=== PATIENT | male | born 1975 | race Two or more races ===

== ENCOUNTER 2025-02-06 20:51 | Inpatient (IN) | payer BC, OTHER ==
[~2025-02-06] VITALS: Ht 170.2 cm; Wt 86.8 kg
[2025-02-06 21:33] LABS: Urine Bacteria None Seen /hpf (None Seen)
--- NOTE | 2025-02-06 21:37 | ED.PDOC ---
General HPI Comments 49-year-old male with PMHx Renal Stones presents with a chief complaint of hypertension, flank pain, dysuria, burning with urination, nausea and vomiting for the past. Patient states that his pain is localized to his left flank, nonradiating, describes as sharp, and states that the pain resembles the last time he had a kidney stone. Patient mentions that he has pain upon urination and it also jones when he urinates. Patient endorses nausea and 3 episodes of vomiting today. Patient is hypertensive in triage at 202/103. Denies any HTN diagnosis or taking any medications for any medical conditions. Patient does not follow with a primary care provider Time Seen by MD: 21:20 Reviewed notes: Medications, Allergies Allergies: Coded Allergies: NO KNOWN ALLERGIES (Unverified , 02/06/25) Information Source: Patient Mode of Arrival: Ambulatory Severity: Moderate Inability to void: None Timing: Hours Duration: Since onset Has not urinated for: Minutes Prehospital treatment: None Onset: Spontaneous Symptoms: Dysuria History of: Kidney stone Location: (L)Flank associated signs and symptoms: Flank Pain, Dysuria Vital Signs Vital Signs Date Time Temp Pulse Resp B/P (MAP) Pulse Ox O2 Delivery O2 Flow Rate FiO2 02/06/25 23:44 91 18 96 Room Air* 0 21 02/06/25 23:14 190/117 02/06/25 22:32 98.0 98.0 Physical Exam General: Awake, alert and oriented. No acute distress. Skin: Skin in warm, dry and intact. Appropriate color for ethnicity. HEENT: The head is normocephalic and atraumatic. Conjunctivae are clear without exudates or hemorrhage. Sclera is non-icteric. EOM are intact. No signs of nystagmus. Eyelids are normal in appearance without swelling or lesions. Oral mucosa is pink and moist Neck: The neck is supple with normal range of motion. No JVD. Cardiac: Heart rate and rhythm are normal. No murmurs, gallops, or rubs are auscultated. Respiratory: No signs of respiratory distress. Lung sounds are clear in all lobes bilaterally without rales, ronchi, or wheezes. Abdominal: Abdomen is soft, mild midline tenderness without distention. Positive left flank tenderness. Extremities: Upper and lower extremities are atraumatic in appearance without de formity or edema. Neurological: The patient is awake, alert and oriented to person, place, and time with normal speech. Speech is clear. There is no facial asymmetry. Psychiatric: Appropriate mood and affect. Good judgement and insight. No visual or auditory hallucinations. Review of Systems: REVIEW OF SYSTEMS: No fever, no chills, or fatigue HEENT: No sore throat, no earache, no congestion, no neck pain. Cardiac: No chest pain. No palpitations. Lungs: No shortness of breath, no cough. GI: Positive nausea, positive vomiting, no diarrhea, no constipation, no abdominal pain : Positive dysuria, no frequency, or urgency. No hematuria. Musculoskeletal: No joint pain , no joint swelling, no extremity edema. Skin: No rash, no itching. Neuro: No headache, no dizziness, no weakness Past Medical History PAST MEDICAL HISTORY: Kidney Stones Surgical History: Denies all surgeries Family History Family History: Reviewed,noncontributory to illness Social History Smoker: Non-Smoker Alcohol: Denies ETOH Use Drugs: Denies Drug Use Lives In: Home Was a procedure done? Was a procedure done?: No Differential Diagnosis Kidney stone (Female): AAA, Bowel obstruction, Hepatitis, Renal failure, Urinary obstruction, Urolithiasis, Other Other Differential Diagnosis Hypertensive urgency, hypertensive emergency, hypertensive encephalopathy, other X-Ray, Labs, Meds, VS Vital Signs Date Time Temp Pulse Resp B/P (MAP) Pulse Ox O2 Delivery O2 Flow Rate FiO2 02/06/25 23:44 91 18 96 Room Air* 0 21 02/06/25 23:14 190/117 02/06/25 23:10 94 189/114 02/06/25 22:40 93 16 170/100 02/06/25 22:32 98.0 86 28 210/122 (151) 92 98.0 02/06/25 22:08 85 17 210/122 02/06/25 22:07 85 210/122 02/06/25 21:42 79 02/06/25 20:51 98.0 86 14 202/130 (154) 97 98.0 Lab Test 02/06/25 21:38 02/06/25 21:30 Range/Units White Blood Count 15.1 H 4.4-10.8 10^3/uL Red Blood Count 4.87 4.5-5.90 10^6/uL Hemoglobin 14.7 13.5-17.5 g/dL Hematocrit 44.8 41.0-53.0 % Mean Corpuscular Volume 91.9 80.0-100.0 fL Mean Corpuscular Hemoglobin 30.2 28.0-32.0 pg Mean Corpuscular Hemoglobin Concent 32.8 32.0-36.0 g/dL Red Cell Distribution Width 14.3 11.8-14.3 % Platelet Count 188 140-450 10^3/uL Mean Platelet Volume 10.6 6.9-10.8 fL Neutrophils (%) (Auto) 87.2 H 37.0-80.0 % Lymphocytes (%) (Auto) 7.1 L 10.0-50.0 % Monocytes (%) (Auto) 5.3 0.0-12.0 % Eosinophils (%) (Auto) 0.2 0.0-7.0 % Basophils (%) (Auto) 0.2 0.0-2.0 % Neutrophils # (Auto) 13.2 H 1.6-8.6 10 ^3/uL Lymphocytes # (Auto) 1.1 0.4-5.4 10 ^3/uL Monocytes # (Auto) 0.8 0-1.3 10 ^3/uL Eosinophils # (Auto) 0 0-0.8 10 ^3/uL Basophils # (Auto) 0 0-0.2 10 ^3/uL Nucleated Red Blood Cells 0.0 % Sodium Level 139 136-145 mmol/L Potassium Level 3.6 3.5-5.1 mmol/L Chloride Level 102 98-107 mmol/L Carbon Dioxide Level 27 20-31 mmol/L Anion Gap 10 5-15 Blood Urea Nitrogen 23 9-23 mg/dL Creatinine 1.63 H 0.700-1.30 mg/dL Glomerular Filtration Rate Calc 51 >90 mL/min BUN/Creatinine Ratio 14.1 10.0-20.0 Serum Glucose 136 H 74-106 mg/dL Calcium Level 9.5 8.7-10.4 mg/dL Total Bilirubin 0.3 0.2-1.0 mg/dL Aspartate Amino Transferase (AST) 32 13-40 U/L Alanine Aminotransferase (ALT) 64 H 7-40 U/L Alkaline Phosphatase 93 46-116 U/L Troponin I High Sensitivity 3 L </=54 ng/L Total Protein 7.8 5.7-8.2 g/dL Albumin 5.0 H 3.2-4.8 g/dL Urine Color Colorless Yellow Urine Clarity Clear Clear Urine pH 7.5 5.0-9.0 Urine Specific [place] 1.013 1.001-1.035 Urine Protein Negative Negative Urine Ketones 1+ H Negative Urine Blood 2+ H Negative /uL Urine Nitrite Negative Negative Urine Bilirubin Negative Negative Urine Urobilinogen Normal Negative mg/dL Urine Leukocyte Esterase Negative Negative /uL Urine RBC 81 0 - 3 /hpf Urine Microscopic WBC < 1 0-3 /HPF Urine Squamous Epithelial Cells Few <5 /hpf Urine Bacteria None seen None Seen /hpf Urine Glucose Normal Normal mg/dL Current Medications Medications (Trade) Dose Ordered Sig/Fritz Route Start Time Stop Time Status Last Admin Morphine Sulfate 2 mg ONCE ONCE IV 02/06/25 21:30 02/06/25 21:31 DC 02/06/25 22:08 Labetalol HCl (Labetalol HCl) 10 mg ONCE ONCE IV 02/06/25 21:30 02/06/25 21:31 DC 02/06/25 22:07 Hydralazine HCl (Apresoline Injection) 10 mg ONCE ONCE IV 02/06/25 23:15 02/06/25 23:16 DC 02/06/25 23:14 Time of 1ST Reevaluation: 21:50 Reevaluation 1ST: Unchanged Patient Education/Counseling: Diagnosis, Treatment, Prognosis Family Education/Counseling: No Family Present Departure 1 Departure Time of Disposition: 22:39 Impression: Primary Impression: Uncontrolled hypertension Additional Impressions: Acute kidney injury Nephrolithiasis Disposition: ADMITTED INPATIENT Condition: Stable Comments 49-year-old male sitting with flank pain noted to be hypertensive. On arrival to the ED. CT scan showedIMPRESSION: Approximately 2 mm calculus in the distal left ureter causing [id number] left hydroureteronephrosis. Decreased hepatic parenchymal attenuation which is most commonly secondary to fatty infiltration. Labetalol, hydralazine, administered in the ED with some improvement in blood pressure. No neurologic or cardiac symptoms. Patient admitted for further treatment, evaluation and monitoring. Extensive evaluation was performed in attempt to identify or rule out: (See differential diagnosis section) The following tests were ordered, and results were reviewed by me and discussed with patient: (See diagnostic results section) The following test were independently interpreted by me: EKG I reviewed and agreed with the following test results read by other providers: N/A I reviewed the following notes from the pt's past medical encounters: N/A Additional information was gathered from interviewing the following independent historians: N/A Discussion of management or test interpretation with external physician/other qualified health acute care surgeon: N/A Addressed an acute or chronic illness that poses a threat to life or bodily function: Uncontrolled hypertension, acute kidney injury, Decision regarding hospitalization or escalation of hospital level of care: Risk and benefits of admission for further treatment of patient's condition was considered. Due to patient's current clinical condition, high risk of decline and poor outcome if discharged and need for further inpatient management and monitoring, patient will be admitted to the hospital. Drug therapy requiring intensive monitoring for toxicity: IV labetalol, IV hydralazine Parenteral controlled substances: IV morphine Decision regarding elective major surgery with identified patient or procedure risk factors: N/A Decision regarding emergency major surgery: N/A Decision not to resuscitate or to de-escalate care because of poor prognosis: N/A Diagnosis or treatment significantly limited by social determinants of health: N/A Critical Care Note Critical Care Time?: No Stability Stability form required: No Heart Score Heart Score: Heart Score Response (Comments) Value History N/A 0 EKG N/A 0 Age N/A 0 Risk Factors N/A 0 Troponin N/A 0 Total 0 I personally scribed for HANNA BATISTA MD ([email or web address]) on 02/06/25 at 21:37. Electronically submitted by Moo Watters ([email or web address]). HANNA BATISTA MD Feb 06, 2025 21:37
[2025-02-06 21:44] LABS: Urine Blood 2+ /uL (Negative); Urine Clarity Clear (Clear); Urine Color Colorless (Yellow); Urine Protein, UAD Negative (Negative); Urine Specific Gravity 1.013 (1.001-1.035); Urine Squamous Epithelial Cell FEW /hpf (<5); Urine Urobilinogen Normal (Negative); Urine WBC < 1 /HPF (0-3); Urine pH 7.5 (5.0-9.0)
--- NOTE | 2025-02-06 21:44 | ECG ---
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
[2025-02-06 21:53] LABS: Basophils # (auto) 0 10 ^3/uL (0-0.2); Basophils % (auto) 0.2 % (0.0-2.0); Eosinophils # (auto) 0 10 ^3/uL (0-0.8); Eosinophils % (auto) 0.2 % (0.0-7.0); Hematocrit 44.8 % (41.0-53.0); Hemoglobin 14.7 g/dL (13.5-17.5); Lymphocytes # (auto) 1.1 10 ^3/uL (0.4-5.4); Lymphocytes % (auto) 7.1 % (10.0-50.0); Mean Corpuscular Hemoglobin 30.2 pg (28.0-32.0); Mean Corpuscular Hgb Conc. 32.8 g/dL (32.0-36.0); Mean Corpuscular Volume 91.9 fL (80.0-100.0); Monocytes # (auto) 0.8 10 ^3/uL (0-1.3); Monocytes % (auto) 5.3 % (0.0-12.0); Neutrophils # (auto) 13.2 10 ^3/uL (1.6-8.6); Neutrophils % (auto) 87.2 % (37.0-80.0); Platelet Count (auto) 188 10^3/uL (140-450); Red Blood Cells 4.87 10^6/uL (4.5-5.90); Red Cell Distribution Width 14.3 % (11.8-14.3); White Blood Cell 15.1 10^3/uL (4.4-10.8)
[2025-02-06 22:00] LABS: Alkaline Phosphatase 93 U/L (46-116); Anion Gap 10 (5-15); Aspartate Aminotransferase 32 U/L (13-40); BUN/Creatinine Ratio 14.1 (10.0-20.0); Bilirubin, Total 0.3 mg/dL (0.2-1.0); Blood Urea Nitrogen 23 mg/dL (9-23); Calcium 9.5 mg/dL (8.7-10.4); Carbon Dioxide 27 mmol/L (20-31); Chloride 102 mmol/L (98-107); Potassium 3.6 mmol/L (3.5-5.1); Sodium 139 mmol/L (136-145); Total Protein 7.8 g/dL (5.7-8.2)
[2025-02-06 22:07] LABS: Glucose 136 mg/dL (74-106)
[2025-02-06] MEDS: LABETALOL HCL 20 MG/4 ML VL IV ONE (22:07)
[2025-02-06 22:08] LABS: Alanine Aminotransferase 64 U/L (7-40)
[2025-02-06] MEDS: MORPHINE SULFATE INJ 2 MG/ml SYRG IV ONE (22:08)
[2025-02-06] MEDS: hydrALAZINE HCL 20 MG/ML VL IV ONE (23:14)
[2025-02-06 23:44] VITALS: PULSE 91; RESP 18; O2SAT 96
[2025-02-07] VITALS (7 sets, daily range): BP systolic 148–156; BP diastolic 91–105; PULSE 71–82; RESP 17–20; TEMP 97.6–98.7; O2SAT 95–98
--- NOTE | 2025-02-07 00:35 | DVH ---
CT SCAN ABDOMEN AND PELVIS WITHOUT CONTRAST CLINICAL HISTORY: L Flank pain TECHNIQUE: Helical axial images are obtained from the lung bases through the pelvis without oral cont rast. No intravenous contrast was administered. Coronal and sagittal reformatted images were generate d from thin section reconstructions. One or more of the following radiation dose reduction techniques were used for this examination: automated exposure control, adjustment of the mA and/or kV according to patient size, use of iterative reconstruction technique. COMPARISON: None FINDINGS: LOWER THORAX: Mild dependent atelectasis/ scarring in the imaged lung bases. ABDOMEN AND PELVIS: Evaluation of visceral and vascular structures is limited due to lack of contrast administration. Decreased hepatic parenchymal attenuation. No discrete hepatic lesions as visualized. The unenhanced spleen, pancreas and adrenals appear grossly unremarkable. No sizable, radiopaque cholelithiasis or biliary ductal dilatation. Ihgq-jp-[id number] left hydroureteronephrosis. Approximately 2 mm calculus seen within the distal left ureter at the ureterovesicular junction. Left perinephric and periureteral inflammation. No evidence of abdominal aortic aneurysm. No evidence of bowel obstruction. Normal caliber appendix. No free intraperitoneal air or fluid iden tified. No destructive osseous lesions identified. Multilevel lumbar spine degenerative disc disease. IMPRESSION: Approximately 2 mm calculus in the distal left ureter causing [id number] left hydroureteronephr osis. Decreased hepatic parenchymal attenuation which is most commonly secondary to fatty infiltration.
[2025-02-07] MEDS ORDERED: MORPHINE SULFATE INJ 2 MG/ml SYRG IV PRN (02:15)
[2025-02-07] MEDS ORDERED: ONDANSETRON HCL 4 MG/2 ML VIAL IV PRN (02:15)
[2025-02-07] MEDS ORDERED: ACETAMINOPHEN 325 MG TAB PO PRN (02:15)
--- NOTE | 2025-02-07 02:19 | DVHHPRES ---
History of Present Illness Resident Creating Document: DON MCDUFFIE History of Present Illness Mike Morel 49-year-old male patient who presents to the ED with chief complaint of left-sided flank pain, dysuria, nausea and vomiting associated with hypertension, symptoms started today at 11:00 a.m., prompting his visit to the ED. denies palpitation, syncope, chest pain, dyspnea, diarrhea, sick contacts, bleeding, recent travel and motor or sensory deficits Past medical history: Kidney stones with no surgical intervention Surgical history: Denies Family history: Father and grandfather had [place] Social history: Lives in [place] with family. Denies current tobacco, alcohol and other drug abuse Allergies: Denies Home medication: Denies Patient seen and examined at bedside. Currently has no new complaints. Flank pain has resolved after medical treatment in ED. Past Medical History Per HPI Past Surgical History Per HPI Family History Per HPI Past Social History Per HPI Review of Systems Review of Systems Per HPI Allergies: Coded Allergies: NO KNOWN ALLERGIES (Unverified , 02/06/25) Exam Vital Signs Vital Signs Date Time Temp Pulse Resp B/P (MAP) Pulse Ox O2 Delivery O2 Flow Rate FiO2 02/07/25 02:00 72 15 124/79 (94) 96 02/06/25 23:44 Room Air* 0 21 02/06/25 22:32 98.0 98.0 Exam Patient lying in bed, in no acute distress General: Lucid, afebrile, mucosae are moist Cardiovascular: Normal S1 and S2. No murmurs, gallops or rubs Respiratory: Normal ventilation mechanics. Clear lung sounds on auscultation Abdomen: Soft, nontender, no organomegaly, normal bowel sounds MSK/skin: Mobilizes 4 limbs. Skin is dry and warm Neurological: Oriented in 3 spheres. No motor no sensitive deficits. Pupils are isocoric and reactive Labs/Xrays Labs Test 02/06/25 21:38 02/06/25 21:30 Range/Units White Blood Count 15.1 H 4.4-10.8 10^3/uL Red Blood Count 4.87 4.5-5.90 10^6/uL Hemoglobin 14.7 13.5-17.5 g/dL Hematocrit 44.8 41.0-53.0 % Mean Corpuscular Volume 91.9 80.0-100.0 fL Mean Corpuscular Hemoglobin 30.2 28.0-32.0 pg Mean Corpuscular Hemoglobin Concent 32.8 32.0-36.0 g/dL Red Cell Distribution Width 14.3 11.8-14.3 % Platelet Count 188 140-450 10^3/uL Mean Platelet Volume 10.6 6.9-10.8 fL Neutrophils (%) (Auto) 87.2 H 37.0-80.0 % Lymphocytes (%) (Auto) 7.1 L 10.0-50.0 % Monocytes (%) (Auto) 5.3 0.0-12.0 % Eosinophils (%) (Auto) 0.2 0.0-7.0 % Basophils (%) (Auto) 0.2 0.0-2.0 % Neutrophils # (Auto) 13.2 H 1.6-8.6 10 ^3/uL Lymphocytes # (Auto) 1.1 0.4-5.4 10 ^3/uL Monocytes # (Auto) 0.8 0-1.3 10 ^3/uL Eosinophils # (Auto) 0 0-0.8 10 ^3/uL Basophils # (Auto) 0 0-0.2 10 ^3/uL Nucleated Red Blood Cells 0.0 % Sodium Level 139 136-145 mmol/L Potassium Level 3.6 3.5-5.1 mmol/L Chloride Level 102 98-107 mmol/L Carbon Dioxide Level 27 20-31 mmol/L Anion Gap 10 5-15 Blood Urea Nitrogen 23 9-23 mg/dL Creatinine 1.63 H 0.700-1.30 mg/dL Glomerular Filtration Rate Calc 51 >90 mL/min BUN/Creatinine Ratio 14.1 10.0-20.0 Serum Glucose 136 H 74-106 mg/dL Calcium Level 9.5 8.7-10.4 mg/dL Total Bilirubin 0.3 0.2-1.0 mg/dL Aspartate Amino Transferase (AST) 32 13-40 U/L Alanine Aminotransferase (ALT) 64 H 7-40 U/L Alkaline Phosphatase 93 46-116 U/L Troponin I High Sensitivity 3 L </=54 ng/L Total Protein 7.8 5.7-8.2 g/dL Albumin 5.0 H 3.2-4.8 g/dL Urine Color Colorless Yellow Urine Clarity Clear Clear Urine pH 7.5 5.0-9.0 Urine Specific [place] 1.013 1.001-1.035 Urine Protein Negative Negative Urine Ketones 1+ H Negative Urine Blood 2+ H Negative /uL Urine Nitrite Negative Negative Urine Bilirubin Negative Negative Urine Urobilinogen Normal Negative mg/dL Urine Leukocyte Esterase Negative Negative /uL Urine RBC 81 0 - 3 /hpf Urine Microscopic WBC < 1 0-3 /HPF Urine Squamous Epithelial Cells Few <5 /hpf Urine Bacteria None seen None Seen /hpf Urine Glucose Normal Normal mg/dL Assessment/Plan Assessment/Plan Assessment: Nephrolithiasis complicated with [id number] left hydronephrosis SAVANNAH probably post renal Microscopic hematuria Hypertensive urgency Hepatic steatosis Transaminitis probably due to above Leukocytosis Plan: Completed abdomen and pelvis CT which showed 2 mm calculus in left ureter with nvui-td-nukobonq hydronephrosis Indicated IV fluids and tamsulosin. Urine analysis shows plus one ketones and plus two blood, no signs of infection. We will not initiate antibiotics at this point Evaluate requirement of urology consult, patient asymptomatic at the time of examination Hypertension resolved with pain management Goals of care discussed with patient for over 18 minutes: Full code status Discussed plan with Dr. Person, patient and nurses: We will continue with medical management of kidney stone (IV fluids and tamsulosin). Currently patient is asymptomatic. Ordered abdomen x-ray for a.m. Plan discussed with: Patient, Other (Nurses) My Orders Orders - DON MCDUFFIE RESIDENT Procedure Category Date Status Time Admit ADMIT 02/07/25 Verified 02:08 Code Status CODE 02/07/25 Verified 02:08 Vital Signs [facility] 02/07/25 Verified 02:08 Review Orders With [facility] 02/07/25 Verified Adm. 02:08 Regular Diet DIET 02/07/25 Verified Breakfast Acetaminophen Tablet [facility] 02/07/25 Verified (Tylenol Tablet) 02:15 Notify Of Changes [facility] 02/07/25 Verified From Base 02:08 Advance Directive [facility] 02/07/25 Verified 02:08 Urinalysis LAB 02/07/25 Verified 02:08 Patient Condition ORDERS 02/07/25 Verified 02:08 Allergies [facility] 02/07/25 Verified 02:08 Ondansetron Hcl [facility] 02/07/25 Verified (Zofran) 02:15 Drug Screen LAB 02/07/25 Verified 02:08 Hemoglobin A1c LAB 02/07/25 Verified 02:08 Morphine 2mg Iv Q4hprn [facility] 02/07/25 Verified 02:15 Oxygen By Nasal RT 02/07/25 Verified Cannula 02:08 Stat Ekg For Chest [facility] 02/07/25 Verified Pain 02:08 Notify Of Changes [facility] 02/07/25 Verified From Base 02:08 Molded Goods Operator For [facility] 02/07/25 Verified 24 Hours 02:08 Emergency Dysrhythmia [facility] 02/07/25 Verified Protocol 02:08 Rhythm Strips Once [facility] 02/07/25 Verified Every Shift 02:08 NS [facility] 02/07/25 Verified 02:15 Tamsulosin [facility] 02/07/25 Verified Hydrochloride (Flomax) 02:15 Tamsulosin [facility] 02/07/25 Verified Hydrochloride (Flomax) 18:00 Vitamin D, 25-Hydroxy LAB 02/07/25 Verified 02:08 Vitamin B12 LAB 02/07/25 Verified 02:08 Thyroid Stimulating LAB 02/07/25 Verified Hormone 02:08 Phosphorus LAB 02/07/25 Verified 02:08 Magnesium LAB 02/07/25 Verified 02:08 Lipid Panel LAB 02/07/25 Verified 02:08 Complete Blood Count LAB 02/07/25 Verified 04:08 Basic Metabolic Panel LAB 02/07/25 Verified 04:08 DON MCDUFFIE RESIDENT Feb 07, 2025 02:19
[2025-02-07] MEDS: SODIUM CHLORIDE 0.9% 1,000 ML IV SCH (02:24)
[2025-02-07] MEDS: SODIUM CHLORIDE 0.9% 1,000 ML IV ONE (02:30)
[2025-02-07] MEDS: TAMSULOSIN HYDROCHLORIDE 0.4 MG CAP PO ONE (02:30)
[2025-02-07 03:25] LABS: Amphetamine Screen, Urine Neg (NEGATIVE); Barbiturate Scree,Urine Neg (NEGATIVE); Benzodiazephine Screen, Urine Neg (NEGATIVE); Cannabinoid Screen, Urine Neg (NEGATIVE); Cocaine Screen, Urine Neg (NEGATIVE); Opiate Scree,Urine Neg (NEGATIVE); Phencyclidine Screen, Urine Neg (NEGATIVE)
[2025-02-07 04:07] LABS: Basophils # (auto) 0 10 ^3/uL (0-0.2); Basophils % (auto) 0.1 % (0.0-2.0); Eosinophils # (auto) 0 10 ^3/uL (0-0.8); Eosinophils % (auto) 0.2 % (0.0-7.0); Hematocrit 39.6 % (41.0-53.0); Hemoglobin 13.8 g/dL (13.5-17.5); Lymphocytes # (auto) 1.4 10 ^3/uL (0.4-5.4); Lymphocytes % (auto) 14.2 % (10.0-50.0); Mean Corpuscular Hemoglobin 31.5 pg (28.0-32.0); Mean Corpuscular Hgb Conc. 34.7 g/dL (32.0-36.0); Mean Corpuscular Volume 90.8 fL (80.0-100.0); Monocytes # (auto) 0.9 10 ^3/uL (0-1.3); Monocytes % (auto) 8.4 % (0.0-12.0); Neutrophils # (auto) 7.9 10 ^3/uL (1.6-8.6); Neutrophils % (auto) 77.1 % (37.0-80.0); Platelet Count (auto) 187 10^3/uL (140-450); Red Blood Cells 4.37 10^6/uL (4.5-5.90); Red Cell Distribution Width 14.2 % (11.8-14.3); White Blood Cell 10.2 10^3/uL (4.4-10.8)
[2025-02-07 04:29] LABS: Chloride 103 mmol/L (98-107); Potassium 3.6 mmol/L (3.5-5.1); Sodium 138 mmol/L (136-145)
[2025-02-07 04:30] LABS: Anion Gap 10 (5-15); Calcium 9.2 mg/dL (8.7-10.4); Carbon Dioxide 25 mmol/L (20-31)
[2025-02-07 04:35] LABS: BUN/Creatinine Ratio 15.8 (10.0-20.0); Blood Urea Nitrogen 19 mg/dL (9-23); Triglycerides 124 mg/dL (< 150)
[2025-02-07 04:37] LABS: Cholesterol 187 mg/dL (< 200)
[2025-02-07 04:43] LABS: Glucose 138 mg/dL (74-106); HDL Cholesterol 38 mg/dL (40-59); LDL Cholesterol 142 mg/dL (< 100)
--- NOTE | 2025-02-07 09:49 | DVH ---
US KIDNEY HISTORY: Nephrolithiasis with hydro COMPARISON: 02/06/25 TECHNIQUE: Transverse and longitudinal grayscale and color Doppler images were obtained of the kidney s and bladder. FINDINGS: Right kidney: Size: 10.9 cm Cortical thickness: Normal Echogenicity: Normal Stones: None Masses: None Hydronephrosis: None Ureters: Not well visualized. Other: None Left kidney: Size: 11.6 cm Cortical thickness: Normal Echogenicity: Normal Stones: None Masses: None Hydronephrosis: Yes Ureters: Not well visualized. Other: None Bladder: Normal Other: None. IMPRESSION: Left hydronephrosis.
[2025-02-07 11:05] LABS: Hepatitis B Surface Antigen Negative (Negative)
[2025-02-07 11:13] LABS: Hepatitis A Ab IgM Negative; Hepatitis B Core IgM Negative (Negative); Hepatitis C Antibody Negative (Negative)
[2025-02-07] MEDS: NIFEdipine ER 30 MG TAB PO SCH (11:17)
--- NOTE | 2025-02-07 15:12 | DVHPNRES ---
Progress Note Date Seen: Feb 07, 2025 Resident Creating Document: NESSA JARA RESIDENT Has the PT tested + for MRSA If YES, has PT been informed?: No Medical Necessity Reason Pt with a Central, PICC or Fol: No Medical Necessity Reason Patient is a 49-year-old male with a past medical history of nephrolithiasis presented to the ED on 02/06/2025 with chief complaint of left-sided flank pain, dysuria, nausea and vomiting associated with hypertension. Symptoms begun yesterday morning and due to uncontrolled flank pain presented to the ED for evaluation. Patient denies trauma to the left side palpitation, syncope, chest pain, dyspnea, diarrhea, sick contacts, bleeding, recent travel and motor or sensory deficits.Vitals revealed BP: 202/[address] abdomen revealed approximately 2 mm calculus in the distal left ureter causing [id number] left hydroureteronephrosis. Time of my visit with the patient today, he denies any abdominal pain nausea vomiting even left flank pain. Patient also had a renal US showed Left hydronephrosis. Past medical history: Kidney stones with no surgical intervention Surgical history: Denies Family history: Father and grandfather had [place] Social history: Lives in [place] with family. Denies current tobacco, alcohol and other drug abuse Allergies: Denies Home medication: Denies Subjective Review of Systems Constitutional: Denies fever no chills no feeling of malaise HEENT: Denies headache, ear pain, ear discharges, conjunctivitis, nasal discharge throat pain Cardiovascular: Denies chest pain, palpitation, orthopnea, PND, or pedal edema Respiratory: Denies shortness of breath, cough cough, sputum production, hemoptysis, GI: Denies abdominal pain, nausea, vomiting, diarrhea, hematemesis, hematochezia, : Denies frequency, urgency, hematuria, Endocrine: Denies unintentional weight gain or weight loss, feeling of hot flashes, [place]: Denies easy bruising, bleeding disorders, epistaxis Musculoskeletal: Denies joint pains, muscle aches Psych: No evidence of depression, clotilde, suicidal ideation Objective vital signs Vital Sign Date Time Temp Pulse Resp B/P (MAP) Pulse Ox O2 Delivery O2 Flow Rate FiO2 02/07/25 13:00 97.7 71 18 156/98 (117) 97 97.7 02/07/25 08:20 Room Air* 0 21 Total Intake and Output 02/06/25 02/06/25 02/07/25 15:00 23:00 07:00 Intake Total 0 ml Balance 0 ml medications Current Medications Medications Dose Ordered Sig/Fritz Route Start Time Stop Time Status Last Admin Dose Admin Acetaminophen 650 mg Q6HP PRN PO 02/07/25 02:15 Ondansetron HCl 4 mg Q4HP PRN IV 02/07/25 02:15 Morphine Sulfate 2 mg Q4HPRN PRN IV 02/07/25 02:15 Sodium Chloride 1,000 ml @ 100 mls/hr Q10H IV 02/07/25 02:15 02/07/25 02:24 100 MLS/HR Tamsulosin HCl 0.4 mg QPM PO 02/07/25 18:00 Nifedipine 30 mg DAILY PO 02/07/25 10:00 02/07/25 11:17 30 MG Examination General Appearance: Alert, Oriented X3, Cooperative, No acute distress HEENT: Atraumatic, PERRLA, EOMI, Mucous membrane moist/pink Respiratory: Clear to auscultation, Normal air movement Cardiovascular: Regular rate, Normal S1, Normal S2, No murmurs, no chest wall tenderness Abdominal: NO distention, no tenderness, bowel sounds present, no scars noted Extremities: No clubbing, No cyanosis, No edema, Normal pulses, No tenderness/swelling Skin: No rashes, No breakdown, No significant lesion Neuro: Normal gait, Normal speech, Strength at 5/5 X4 ext, Normal tone, Sensation intact, Cranial nerves 3-12 NL, Reflexes 2+ Psych/Mental Status: Mental status NL, Mood NL laboratory and microbiology Laboratory Tests 02/07/25 03:36 Test 02/07/25 03:36 Range/Units Serum Glucose 138 H 74-106 mg/dL Problem List/Assessment/Plan Problem List/Assessment/Plan Assessment Nephrolithiasis complicated by left sided hydronephrosis --> Renal US today showed a left distal ureteric stone with hydronephrosis --> Strain urine --> Pain control with Nsaid (ketorolac) --> Continue Tamsulosin --> Monitor closely and repeat renal US tomorrow SAVANNAH probably due to post renal cause --> Once the obstruction is release creatinine will improve --> daily BMP Hypertensive urgency --> BP now is 158/98 Obesity Grade I --> BMI: 30.4 --> Counselled about patient on life style modification, diet and exercise Prediabetes --> Hgb A1c: 6.2 --> Counselled about patient on life style modification, diet and exercise Hepatic steatosis Leukocytosis Goal of care discussed for more than 20 minutes: Full code Case and plan discussed with Dr. Person Plan discussed with: Patient My Orders My Orders Orders - NESSA JARA Procedure Category Date Status Time Nifedipine Er [facility] 02/07/25 In Process (Procardia Xl 10:00 Kidney US 02/08/25 Logged 10:00 NESSA JARA RESIDENT Feb 07, 2025 15:12
[2025-02-07] MEDS: TAMSULOSIN HYDROCHLORIDE 0.4 MG CAP PO SCH (17:03)
[2025-02-08 01:00] VITALS: BP 128/89; PULSE 68; RESP 17; TEMP 98.3; O2SAT 95
[2025-02-08 05:00] VITALS: BP 123/88; PULSE 74; RESP 18; TEMP 98; O2SAT 96
[2025-02-08 07:41] LABS: Basophils # (auto) 0 10 ^3/uL (0-0.2); Basophils % (auto) 0.4 % (0.0-2.0); Eosinophils # (auto) 0.1 10 ^3/uL (0-0.8); Eosinophils % (auto) 1.5 % (0.0-7.0); Hematocrit 40.4 % (41.0-53.0); Hemoglobin 13.6 g/dL (13.5-17.5); Lymphocytes # (auto) 1.6 10 ^3/uL (0.4-5.4); Mean Corpuscular Hgb Conc. 33.6 g/dL (32.0-36.0); Mean Corpuscular Volume 92.3 fL (80.0-100.0); Monocytes # (auto) 0.7 10 ^3/uL (0-1.3); Monocytes % (auto) 10.6 % (0.0-12.0); Neutrophils # (auto) 4.1 10 ^3/uL (1.6-8.6); Neutrophils % (auto) 63.5 % (37.0-80.0); Nucleated Red Blood Cells % 0.1 %; Platelet Count (auto) 181 10^3/uL (140-450); Red Blood Cells 4.38 10^6/uL (4.5-5.90); Red Cell Distribution Width 14.3 % (11.8-14.3); White Blood Cell 6.5 10^3/uL (4.4-10.8)
[2025-02-08 07:59] LABS: Anion Gap 9 (5-15); Carbon Dioxide 25 mmol/L (20-31); Chloride 104 mmol/L (98-107); Sodium 138 mmol/L (136-145)
[2025-02-08 08:00] VITALS: PULSE 95; RESP 18
[2025-02-08 08:00] LABS: Calcium 9.1 mg/dL (8.7-10.4)
[2025-02-08 08:01] LABS: Potassium 3.4 mmol/L (3.5-5.1)
[2025-02-08 08:05] LABS: BUN/Creatinine Ratio 12.1 (10.0-20.0); Blood Urea Nitrogen 12 mg/dL (9-23); Glucose 99 mg/dL (74-106)
--- NOTE | 2025-02-08 08:08 | DVH ---
INDICATION: assess the hydronephrosis TECHNIQUE: Multiple real-time sonographic images of the kidneys and bladder were obtained. COMPARISON: US KIDNEY on DOS: 02/07/25 FINDINGS: The right kidney measures 10.5 cm in length, which is normal in size. There is normal echog enicity of the right kidney. No hydronephrosis. The left kidney measures 11.0 cm in length, which is normal in size. There is normal echogenicity of the left kidney. No hydronephrosis. No large intraluminal masses are seen in the bladder. Prior to voiding the bladder volume measures vo lume 480 cc. Following voiding, the bladder volume residual measures 0 cc. IMPRESSION: 1. Normal sonographic appearance of the kidneys. No hydronephrosis.
--- NOTE | 2025-02-08 08:33 | DVH ---
Date: 02/08/2025 08:01 AM Examination: XY KUB ABDOMEN SINGLE VIEW History: pain Comparison: None TECHNIQUE: Frontal views of the abdomen was obtained. FINDINGS: Bowel gas pattern is unremarkable. Moderate stool burden. The lung bases are unremarkable. No acute osseous abnormality identified. IMPRESSION: Nonobstructive bowel gas pattern. Moderate stool burden.
[2025-02-08 09:00] VITALS: BP 158/99; PULSE 95; RESP 19; TEMP 98.6; O2SAT 91
[2025-02-08 13:00] VITALS: BP 174/99; PULSE 74; RESP 19; TEMP 97.8; O2SAT 95
[2025-02-08] MEDS: NIFEdipine ER 30 MG TAB PO ONE (13:30)
[2025-02-08] MEDS: POTASSIUM CHL 20 Meq TABLET PO ONE (13:30)
--- NOTE | 2025-02-08 15:25 | DVHDSRES ---
Discharge Summary Date of Admission Resident Creating Document: NESSA JARA Feb 07, 2025 at 02:08 Date of Discharge: Feb 08, 2025 Admitting Diagnosis Left flank pain Labs/Diagnostic Data: PATIENT: KOURTNEY MACK: [id number] UNIT: [id number] : 1975 LOC: [facility] ROOM / BED: [address] [place] [address] AGE / SEX: 49 / M ADM STATUS: ADM IN SERVICE 1400 ORDERING PHYSICIAN: DON MCDUFFIE PROCEDURE(s): KUB - KUB ABDOMEN SINGLE VIEW REASON: Knee stone ORDER NUMBER(s): [id number], ACCESSION NUMBER(s): [id number] Date: 02/08/2025 08:01 AM Examination: XY KUB ABDOMEN SINGLE VIEW History: pain Comparison: None TECHNIQUE: Frontal views of the abdomen was obtained. FINDINGS: Bowel gas pattern is unremarkable. Moderate stool burden. The lung bases are unremarkable. No acute osseous abnormality identified. IMPRESSION: Nonobstructive bowel gas pattern. Moderate stool burden. ENT: ALEXIS MACKCT: [id number] UNIT: [id number] : 1975 LOC: [facility] ROOM / BED: [facility] / AGE / SEX: 49 / M ADM STATUS: ADM IN SERVICE 1000 ORDERING PHYSICIAN: NESSA JARA PROCEDURE(s): KIDUS - KIDNEY REASON: assess the hydronephrosis ORDER NUMBER(s): [id number], ACCESSION NUMBER(s): [id number] INDICATION: assess the hydronephrosis TECHNIQUE: Multiple real-time sonographic images of the kidneys and bladder were obtained. COMPARISON: US KIDNEY on DOS: 02/07/25 FINDINGS: The right kidney measures 10.5 cm in length, which is normal in size. There is normal echogenicity of the right kidney. No hydronephrosis. The left kidney measures 11.0 cm in length, which is normal in size. There is normal echogenicity of the left kidney. No hydronephrosis. No large intraluminal masses are seen in the bladder. Prior to voiding the bladder volume measures volume 480 cc. Following voiding, the bladder volume residual measures 0 cc. IMPRESSION: 1. Normal sonographic appearance of the kidneys. No hydronephrosis. ENT: ALEXIS MACKCT: [id number] UNIT: [id number] : 1975 LOC: [facility] ROOM / BED: [facility] / AGE / SEX: 49 / M ADM STATUS: ADM IN SERVICE 0856 ORDERING PHYSICIAN: DON MCDUFFIE PROCEDURE(s): KIDUS - KIDNEY REASON: Nephrolithiasis with hydro ORDER NUMBER(s): [id number], ACCESSION NUMBER(s): [id number] US KIDNEY HISTORY: Nephrolithiasis with hydro COMPARISON: 02/06/25 TECHNIQUE: Transverse and longitudinal grayscale and color Doppler images were obtained of the kidneys and bladder. FINDINGS: Right kidney: Size: 10.9 cm Cortical thickness: Normal Echogenicity: Normal Stones: None Masses: None Hydronephrosis: None Ureters: Not well visualized. Other: None Left kidney: Size: 11.6 cm Cortical thickness: Normal Echogenicity: Normal Stones: None Masses: None Hydronephrosis: Yes Ureters: Not well visualized. Other: None Bladder: Normal Other: None. IMPRESSION: Left hydronephrosis. ATED BY: SIXTO MCGREGOR MD DICTATED DATE/TIME: 02/07/25 0946 PATIENT: ALEXIS MACKCT: [id number] UNIT: [id number] : 1975 LOC: ER ROOM / BED: / AGE / SEX: 49 / M ADM STATUS: REG ER SERVICE 23 ORDERING PHYSICIAN: HANNA BATISTA MD PROCEDURE(s): ABPL - CT AB PEL WO CON-NO ORAL OR IV REASON: L Flank pain ORDER NUMBER(s): [id number], ACCESSION NUMBER(s): [id number] CT SCAN ABDOMEN AND PELVIS WITHOUT CONTRAST CLINICAL HISTORY: L Flank pain TECHNIQUE: Helical axial images are obtained from the lung bases through the pelvis without oral contrast. No intravenous contrast was administered. Coronal and sagittal reformatted images were generated from thin section reconstructions. One or more of the following radiation dose reduction techniques were used for this examination: automated exposure control, adjustment of the mA and/or kV according to patient size, use of iterative reconstruction technique. COMPARISON: None FINDINGS: LOWER THORAX: Mild dependent atelectasis/ scarring in the imaged lung bases. ABDOMEN AND PELVIS: Evaluation of visceral and vascular structures is limited due to lack of contrast administration. Decreased hepatic parenchymal attenuation. No discrete hepatic lesions as visualized. The unenhanced spleen, pancreas and adrenals appear grossly unremarkable. No sizable, radiopaque cholelithiasis or biliary ductal dilatation. [id number] left hydroureteronephrosis. Approximately 2 mm calculus seen within the distal left ureter at the ureterovesicular junction. Left perinephric and periureteral inflammation. No evidence of abdominal aortic aneurysm. No evidence of bowel obstruction. Normal caliber appendix. No free intraperitoneal air or fluid identified. No destructive osseous lesions identified. Multilevel lumbar spine degenerative disc disease. IMPRESSION: Approximately 2 mm calculus in the distal left ureter causing [id number] left hydroureteronephrosis. Decreased hepatic parenchymal attenuation which is most commonly secondary to fatty infiltration. Laboratory Results Test 02/08/25 06:20 02/07/25 03:36 02/06/25 21:38 02/06/25 21:30 White Blood Count 6.5 10^3/uL (4.4-10.8) Red Blood Count 4.38 10^6/uL (4.5-5.90) Hemoglobin 13.6 g/dL (13.5-17.5) Hematocrit 40.4 % (41.0-53.0) Mean Corpuscular Volume 92.3 fL (80.0-100.0) Mean Corpuscular Hemoglobin 31.0 pg (28.0-32.0) Mean Corpuscular Hemoglobin Concent 33.6 g/dL (32.0-36.0) Red Cell Distribution Width 14.3 % (11.8-14.3) Platelet Count 181 10^3/uL (140-450) Mean Platelet Volume 11.2 fL (6.9-10.8) Neutrophils (%) (Auto) 63.5 % (37.0-80.0) Lymphocytes (%) (Auto) 24.0 % (10.0-50.0) Monocytes (%) (Auto) 10.6 % (0.0-12.0) Eosinophils (%) (Auto) 1.5 % (0.0-7.0) Basophils (%) (Auto) 0.4 % (0.0-2.0) Neutrophils # (Auto) 4.1 10 ^3/uL (1.6-8.6) Lymphocytes # (Auto) 1.6 10 ^3/uL (0.4-5.4) Monocytes # (Auto) 0.7 10 ^3/uL (0-1.3) Eosinophils # (Auto) 0.1 10 ^3/uL (0-0.8) Basophils # (Auto) 0 10 ^3/uL (0-0.2) Nucleated Red Blood Cells 0.1 % Sodium Level 138 mmol/L (136-145) Potassium Level 3.4 mmol/L (3.5-5.1) Chloride Level 104 mmol/L (98-107) Carbon Dioxide Level 25 mmol/L (20-31) Anion Gap 9 (5-15) Blood Urea Nitrogen 12 mg/dL (9-23) Creatinine 0.99 mg/dL (0.700-1.30) Glomerular Filtration Rate Calc 93 mL/min (>90) BUN/Creatinine Ratio 12.1 (10.0-20.0) Serum Glucose 99 mg/dL (74-106) Calcium Level 9.1 mg/dL (8.7-10.4) Hemoglobin A1c 6.2 % A1C (<5.7) Uric Acid 8.5 mg/dL (3.7-9.2) Phosphorus Level 4.0 mg/dL (2.4-5.1) Magnesium Level 2.0 mg/dL (1.6-2.6) Triglycerides Level 124 mg/dL (< 150) Cholesterol Level 187 mg/dL (< 200) LDL Cholesterol 142 mg/dL (< 100) HDL Cholesterol 38 mg/dL (40-59) Vitamin B12 Level 334 pg/mL (211-911) Vitamin D 25-Hydroxy 20.1 ng/mL (30.0-100) Thyroid Stimulating Hormone (TSH) 1.09 uIU/mL (0.55-4.78) Hepatitis A IgM Antibody Negative Hepatitis B Surface Antigen Negative (Negative) Hepatitis B Core IgM Antibody Negative (Negative) Hepatitis C Antibody Negative (Negative) Total Bilirubin 0.3 mg/dL (0.2-1.0) Aspartate Amino Transferase (AST) 32 U/L (13-40) Alanine Aminotransferase (ALT) 64 U/L (7-40) Alkaline Phosphatase 93 U/L (46-116) Troponin I High Sensitivity 3 ng/L (</=54) Total Protein 7.8 g/dL (5.7-8.2) Albumin 5.0 g/dL (3.2-4.8) Urine Color Colorless (Yellow) Urine Clarity Clear (Clear) Urine pH 7.5 (5.0-9.0) Urine Specific [place] 1.013 (1.001-1.035) Urine Protein Negative (Negative) Urine Ketones 1+ (Negative) Urine Blood 2+ /uL (Negative) Urine Nitrite Negative (Negative) Urine Bilirubin Negative (Negative) Urine Urobilinogen Normal mg/dL (Negative) Urine Leukocyte Esterase Negative /uL (Negative) Urine RBC 81 /hpf (0 - 3) Urine Microscopic WBC < 1 /HPF (0-3) Urine Squamous Epithelial Cells Few /hpf (<5) Urine Bacteria None seen /hpf (None Seen) Urine Glucose Normal mg/dL (Normal) Urine Opiates Screen Neg (NEGATIVE) Urine Fentanyl Screen Neg (NEGATIVE) Urine Barbiturates Screen Neg (NEGATIVE) Urine Phencyclidine Screen Neg (NEGATIVE) Urine Amphetamines Screen Neg (NEGATIVE) Urine Benzodiazepines Screen Neg (NEGATIVE) Urine Cocaine Screen Neg (NEGATIVE) Urine Cannabinoids Screen Neg (NEGATIVE) Other Laboratory Tests 02/08/25 06:20 Brief Hx & Hospital Course: HISTORY AND PHYSICAL Patient is a 49-year-old male with a past medical history of nephrolithiasis presented to the ED on 02/06/2025 with chief complaint of left-sided flank pain, dysuria, nausea and vomiting associated with hypertension. Symptoms begun yesterday morning and due to uncontrolled flank pain presented to the ED for evaluation. Patient denies trauma to the left side palpitation, syncope, chest pain, dyspnea, diarrhea, sick contacts, bleeding, recent travel and motor or sensory deficits.Vitals revealed BP: 202/130 with repeat of 10/122. CT abdomen revealed approximately 2 mm calculus in the distal left ureter causing [id number] left hydroureteronephrosis. Time of my visit with the patient today, he denies any abdominal pain nausea vomiting even left flank pain. Patient also had a renal US showed Left hydronephrosis. Past medical history: Kidney stones with no surgical intervention Surgical history: Denies Family history: Father and grandfather had [place] Social history: Lives in [place] with family. Denies current tobacco, alcohol and other drug abuse Allergies: Denies Home medication: Denies BRIEF HOSPITAL COURSE In the ED, patient's BP was markedly elevated at at 202/130.He received hydralazine and labetalol which have lower the blood pressure a bit and patient was started on nifedipine initially at 30mg daily and then increase to 60mg po. Complete blood count showed leukocytosis (wbc 15.1) without any uti or lung infections. This improved by the following day. CT of abdomen revealed approximately 2 mm calculus in the distal left ureter causing [id number] left hydroureteronephrosis. Patient received pain medication, fluids, started on tamsulosin and advised to strained the urine. First renal US showed moderate hydronephrosis. A repeat renal US the follow day showed resolved hydronephrosis and improved creatinine as well. Patient doing better. Electrolytes corrected and patient cleared for discharge.I advised patient patient to follow up at the discharge clinic in 2 weeks. Diagnoses Nephrolithiasis complicated by left sided hydronephrosis--> resolved SAVANNAH probably due to post renal cause, Improved Mild hypokalemia, replenished Hypertensive urgency Obesity Grade I, BMI: 30.4 Prediabetes, Hgb A1c: 6.2 Hepatic steatosis Leukocytosis Examination General Appearance: Alert, Oriented X3, Cooperative, No acute distress HEENT: Atraumatic, PERRLA, EOMI, Mucous membrane moist/pink Respiratory: Clear to auscultation, Normal air movement Cardiovascular: Regular rate, Normal S1, Normal S2, No murmurs, no chest wall tenderness Abdominal: NO distention, no tenderness, bowel sounds present, no scars noted Extremities: No clubbing, No cyanosis, No edema, Normal pulses, No tenderness/swelling Skin: No rashes, No breakdown, No significant lesion Neuro: Normal gait, Normal speech, Strength at 5/5 X4 ext, Normal tone, Sensation intact, Cranial nerves 3-12 NL, Reflexes 2+ Psych/Mental Status: Mental status NL, Mood NL Discharge plan Home Advise adequate fluid intake Continue Nifedipine 60 mg daily for blood pressure control Continue Tamsulosin .4mg qpm Follow at the discharge clinic in 2 weeks Advised to get an health insurance Discharge plan discussed with Dr. Person Condition at Discharge: Stable Final Diagnosis/Problems List Nephrolithiasis complicated by left sided hydronephrosis--> improved. No more hydronephrosis today SAVANNAH probably due to post renal cause Hypertensive urgency Obesity Grade I, BMI: 30.4 Prediabetes, Hgb A1c: 6.2 Hepatic steatosis Leukocytosis Discharge Disposition: Home Discharge Statement: "Patient was advised to return to the ER or call 911 if any headaches, dizziness, shortness of breath, chest pain, abdominal pain, bleeding, fevers, or worsening of medical condition. Patient was counseled about treatment plan, medications, possible side effects, patientverbalized understanding. All questions were answered to the best of my ability. This discharge took greater then 30 minutes in planning, reviewing documentation, counseling the patient, and discussing with other team members." ASSESSMENT ASSESSMENT Assessment NESSA JARA RESIDENT Feb 08, 2025 15:25
[2025-02-08] MEDS ORDERED: TAMS-35 PO ×2 (15:31→15:45)
[2025-02-08] MEDS ORDERED: NIFE1TAB31 PO (15:31)
[2025-02-08 17:00] VITALS: BP 161/100; PULSE 82; RESP 19; TEMP 98.2; O2SAT 95
[2025-02-09] MEDS ORDERED: NIFEdipine ER 30 MG TAB PO SCH (10:00)
== END 2025-02-08 19:00 | disposition home or self-care (01) | DRG 694 ==
LOC: ER 20:51 → EEVIPCON 20:51 → OVERFLOW 02-07 02:08 → EAST 02-07 03:42
PROVIDERS: ADMIT Student in an Organized Health Care Education/Training Program; ATTEND Emergency Medicine
DX: N13.2 Hydronephrosis with renal and ureteral calculous obstruction (principal); R73.9 Hyperglycemia, unspecified; R31.29 Other microscopic hematuria; I16.0 Hypertensive urgency; K76.0 Fatty (change of) liver, not elsewhere classified; R74.01 Elevation of levels of liver transaminase levels; D72.829 Elevated white blood cell count, unspecified; N17.9 Acute kidney failure, unspecified; E66.9 Obesity, unspecified; R73.03 Prediabetes; Z68.30 Body mass index [BMI] 30.0-30.9, adult; Z87.442 Personal history of urinary calculi; Z82.49 Family history of ischemic heart disease and other diseases of the circulatory system
CPT/HCPCS: 36415; 74018; 76775; 80048; 80053; 80061; 80074; 80307; 81001; 82306; 82607; 83036; 83735; 84100; 84443; 84484; 84550; 85025; 93005; 96374; 96375; G0378